=== PATIENT | female | born 1970 | race Caucasian/White ===

== ENCOUNTER 2016-12-15 07:38 | Outpatient (CLI) | payer OTHER | END 2016-12-15 07:39 | disposition home or self-care (01) | DX: E89.0 Postprocedural hypothyroidism (principal); C73 Malignant neoplasm of thyroid gland; R53.81 Other malaise; R53.83 Other fatigue ==

== ENCOUNTER 2018-11-10 08:04 | Outpatient (CLI) | payer OTHER ==
[2018-11-10 09:20] LABS: ALBUMIN 3.7 g/dL (3.2-5.5); ALBUMIN/GLOBULIN RATIO 1.1 (1.0-2.2); BILIRUBIN,TOTAL 0.8 mg/dL (0.2-1.0); CALCIUM 8.8 mg/dL (8.5-10.3); CREATININE 0.5 mg/dL (0.4-1.0)
[2018-11-14 13:51] LABS: THYROID PEROXIDASE ANTIBODIES 13 IU/mL (<9)
== END 2018-11-10 08:05 | disposition home or self-care (01) ==
LOC: LAB 08:04
PROVIDERS: ATTEND Internal Medicine Endocrinology, Diabetes & Metabolism
DX: E89.0 Postprocedural hypothyroidism (principal); C73 Malignant neoplasm of thyroid gland
CPT/HCPCS: 36415; 80053; 84439; 84481; 86376; 86800

== ENCOUNTER 2019-07-24 12:09 | Outpatient (CLI) | payer SELFPAY | END 2019-07-24 12:10 | disposition home or self-care (01) | LOC: LAB 12:09 | DX: Z01.89 Encounter for other specified special examinations (principal) | CPT/HCPCS: 36415 ==

== ENCOUNTER 2020-03-18 17:10 | Outpatient (CLI) | payer OTHER | END 2020-03-18 17:11 | disposition home or self-care (01) | LOC: COV 17:10 | PROVIDERS: ATTEND Family Medicine | DX: R50.9 Fever, unspecified (principal); R06.02 Shortness of breath; J02.9 Acute pharyngitis, unspecified | CPT/HCPCS: 81599 ==

== ENCOUNTER 2021-01-10 15:50 | Outpatient (CLI) | payer OTHER ==
--- NOTE | 2021-01-10 16:51 | Ultrasound Report ---
PROCEDURE: Head or Neck Soft Tissue INDICATIONS: THYROID CA, POSTPROCEDURAL HYPOTHYROIDISM TECHNIQUE: Real time scanning was performed of the neck region of interest, with image documentation . COMPARISON: None. In the area of thyroidectomy, there are multiple lymph nodes, with normal cortical medullary architec ture. The largest of these measures 1.9 x 0.8 x 1.4 cm and no definite cortical thickening (3 mm). On the left, 1.2 cm by 0.6 x 0.9 cm lymph node seen with cortex measuring 2 mm. IMPRESSION: Sonographically unremarkable appearing lymph nodes. No discrete mass Reviewed by: Foreign Woody MD on 01/10/2021 4:49 PM PST Approved by: Foreign Woody MD on 01/10/2021 4:49 PM PST Station ID: [id number]
== END 2021-01-10 15:51 | disposition home or self-care (01) ==
LOC: DI 15:50
PROVIDERS: ATTEND Internal Medicine Endocrinology, Diabetes & Metabolism
DX: C73 Malignant neoplasm of thyroid gland (principal); E89.0 Postprocedural hypothyroidism

== ENCOUNTER 2023-11-30 18:35 | Outpatient (CLI) | payer OTHER ==
--- NOTE | 2023-12-01 13:49 | XRAY Report ---
PROCEDURE: Chest 2V INDICATIONS: SHOR OF BREATH TECHNIQUE: 2 views of the chest were acquired. COMPARISON: None. FINDINGS: Surgical changes and devices: None. Lungs and pleura: No pleural effusions or pneumothorax. Lungs are clear. Mediastinum: Mediastinal contours appear normal. Heart size is normal. Bones and chest wall: No suspicious bony lesions. Overlying soft tissues appear unremarkable. IMPRESSION: No acute cardiopulmonary process. Reviewed by: Renaldo Denson MD on 12/01/2023 1:48 PM PST Approved by: Renaldo Denson MD on 12/01/2023 1:48 PM PST Station ID: [id number]
== END 2023-11-30 18:36 | disposition home or self-care (01) ==
LOC: DI 18:35
PROVIDERS: ATTEND Physician Assistant
DX: R06.02 Shortness of breath (principal); R68.89 Other general symptoms and signs; R60.0 Localized edema

== ENCOUNTER 2024-02-20 08:52 | Outpatient (CLI) | payer OTHER ==
--- NOTE | 2024-02-20 17:33 | Ultrasound Report ---
PROCEDURE: Abdomen Limited INDICATIONS: ELEVATED LFTS TECHNIQUE: Real-time focused scanning was performed of the abdomen, with image documentation. COMPARISONS: None. FINDINGS: Liver: Liver measures 19.6 cm with steatosis. Gallbladder: Multilevel mobile dependent foci of echogenicity are present in the dependent gallbladde r lumen. Wall thickness measures 3 mm. Biliary ducts: Intrahepatic bile ducts are non-dilated. Extrahepatic bile duct caliber measures 4 m m. Normal is 6-7 mm or less in diameter, or 10 mm or less post-cholecystectomy. Pancreas: Visualized portions of the pancreas are sonographically normal. Right kidney: Normal in size and echotexture. Right kidney measures 10.4 cm long. No hydronephrosis or nephrolithiasis. No solid masses. No complex renal cystic lesions which require follow-up. Aorta: Visualized aorta is normal in caliber at less than 3 cm. IVC: Intrahepatic inferior vena cava is patent. Miscellaneous: No free abdominal fluid. IMPRESSION: Gallbladder sludge versus small stones. Wall thickness is at the upper limits of normal. Hepatomegaly with steatosis. Reviewed by: Gillian Nieto MD on 02/20/2024 5:31 PM PDT Approved by: Gillian Nieto MD on 02/20/2024 5:31 PM PDT Station ID: [id number]
== END 2024-02-20 08:53 | disposition home or self-care (01) ==
LOC: DI 08:52
PROVIDERS: ATTEND Physician Assistant
DX: K76.0 Fatty (change of) liver, not elsewhere classified (principal)